=== PATIENT | female | born 1965 | race Two or more races ===

== ENCOUNTER 2021-11-22 12:16 | Emergency (ER) | payer BC, OTHER ==
[~2021-11-22] VITALS: Ht 172.7 cm; Wt 68.0 kg
[2021-11-22] MEDS ORDERED: ACETAMINOPHEN 325MG TABLET PO ONE (13:00)
[2021-11-22] MEDS ORDERED: NAPR-1176 MT (14:30)
[2021-11-22 14:40] VITALS: BP 128/77
== END 2021-11-22 15:01 | disposition home or self-care (01) ==
LOC: ER 12:16
DX: R51.9 Headache, unspecified (principal); M54.2 Cervicalgia; M62.838 Other muscle spasm
CPT/HCPCS: 99284